=== PATIENT | male | born 1985 ===

== ENCOUNTER → 2019-10-08 | Outpatient (CLI) | payer OTHER ==
[~2019-10-08] MED LIST: CELE100C PO; CYCL5TAB PO; LAMO25TA5 PO; LURA20TA PO; SERT25TA PO
--- NOTE | 2019-10-08 09:43 | PAIN ---
DATE OF SERVICE: 10/08/2019 INITIAL CONSULTATION FOR PAIN CLINIC CHIEF COMPLAINT: Low back and right lower extremity pain. HISTORY OF PRESENT ILLNESS: This is a 34-year-old male who presents with history of pain in the low back for many years, worse over the past year or so, status post duty. No specific injury or action he is aware of, but had a lot of wear and tear on his back and a lot of manual labor involves not only with , but prior to that. The patient reports he has had physical therapy and also exercise that he is doing currently which helped in the past, and also some dry needling in 2014, which helped with the right leg pain; however, the pain is now across the low back equal right and left as well as pain radiating to the right posterior gluteus, lateral thigh, lateral anterior thigh, medial thigh, medial lower leg, and across the low back as well, but not into the left leg. The patient reports the pain in his right hand as well from previous fracture and 2 subsequent surgeries on the hand. The patient has been taking Celebrex. He is taking tramadol and Flexeril. The tramadol does help, but he has not had any since last summer. Celebrex was not helpful. Flexeril has not been helpful. He is also putting Voltaren gel on his hand, which is helpful for the hand. The patient reports the pain in his back and his right leg wake him up at night at least once a night, does not affect his bowel or bladder control, but does affect his ability to walk. He is not using any assistive devices, however, to ambulate. The patient describes the pain as sharp and changes during the day, worse with flexion and extension; rotation and motion is not terribly painful, but worse with standing, walking, changing positions; better with sitting or lying down, but again awaking him from sleep once a night. The patient reports that his disability rating from 0-10, 10 being at worst, is an 8 with recreation and social activity, 9 with self-care, and 7 with life support activities. The patient did have plain lumbar films, but does not have those with him today and have not available at time of this dictation for review. PAST MEDICAL HISTORY: Significant for hypertension, arthritis, and depression. PREVIOUS SURGERY: Include hand surgery x 2 and exploratory laparotomy at age 23. CURRENT MEDICATIONS: Include Zoloft, Latuda, Lamictal, Celebrex, Flexeril, albuterol inhaler, Flovent, Adalat, and hydrochlorothiazide. ALLERGIES: The patient has no known drug allergies. FAMILY HISTORY: Significant for no major medical problems or conditions that he is aware of. SOCIAL HISTORY: The patient does not drink alcohol, does not smoke. Denies any illegal, illicit or recreational drugs. He is single. He is currently active , but is in custody. REVIEW OF SYSTEMS: The patient's review of systems is positive for those items mentioned in history of present illness. All systems reviewed and otherwise negative. It is complete, full and well documented on the patient's chart. PHYSICAL EXAMINATION: VITAL SIGNS: The patient's blood pressure is 160/98, pulse 83, respirations 16, temperature 98.1 degrees Fahrenheit, height is 71 inches, and weight is 327 pounds. GENERAL: The patient is awake, alert, oriented, appropriate, very pleasant demeanor. The patient is accompanied by guards as the patient is in custody. HEENT: Shows normocephalic, atraumatic. Extraocular movements are intact and symmetrical. Oral cavity shows mucous membranes moist and pink. Dentition is intact. NECK: Shows anterior throat supple without palpable lymphadenopathy noted. Swallow reflex symmetrical. CHEST: Shows normal on inspection. Breath sounds are clear to auscultation bilaterally. HEART: Shows S1, S2 clear. No murmurs auscultated. ABDOMEN: Soft, nontender, and nondistended. No palpable organomegaly is noted. No rebound or guarding demonstrated. BACK: Shows spine grossly in the midline. Normal appearing thoracic kyphosis and lumbar lordotic curvatures. Lumbar paraspinous muscle shows symmetrical on inspection, on palpation shows some moderate tenderness diffusely bilaterally and diffusely without significant radiation. The patient has good rotational motion of lumbar spine with some minor tenderness with extension, but not with forward flexion, rearward extension very minimally painful. The patient's back shows no tenderness with palpation of spinous processes, sacrum or sacroiliac regions bilaterally. EXTREMITIES: The patient's lower extremities show deep tendon reflexes at 2+ in the patellar and tendo-calcaneus tendons are 1+. Motor exam is strong with dorsiflexion, extension, quadriceps, and hamstring flexion symmetrical. Peripheral pulses are 1+ in the posterior tibial and dorsalis pedis pulses. No peripheral edema is noted bilaterally. Lower extremities are warm and dry to touch, equal in color and appearance. The patient's skin shows warm and dry, good turgor. No edema. No sores, rashes or bruising throughout. The patient's upper extremities show deep tendon reflexes at 2+ in the biceps and triceps tendons. Motor exam is strong with pot pusher strength rated at 4/5 on the right and 5/5 on the left. The patient shows well-healed surgical scarring over the posterior aspect of the right hand and the first finger metacarpal region as well as the second metacarpal region with slightly decreased pot pusher strength on the right side compared to the left. IMPRESSION: 1. This is a 34-year-old male with [id number] of low back pain with some radicular pain in the right lower extremity with history of degenerative disk disease by the patient's report. 2. Plain films of lumbar spine pending at time of this dictation. 3. Hypertension. 4. Arthritis. 5. Previous hand surgery with hand pain on the right. PLAN: Options were discussed with the patient including conservative medical managements, continue physical therapy, and interventional technique and they would like to peruse interventional techniques. We discussed a lumbar epidural steroid injection using description as well as anatomical models to describe the procedure. The patient will wait for preauthorization with insurance provider. We will have the patient returned and plan on lumbar epidural steroid injection at that time. JODY MOLINA MD DR: MARA/magy JOB#: [id number] / [id number]
== END | disposition home or self-care (01) ==
LOC: PNCL 07:42 → EEVIPCON 08:00
PROVIDERS: ATTEND Anesthesiology
DX: M79.604 Pain in right leg (principal); I10 Essential (primary) hypertension; M19.90 Unspecified osteoarthritis, unspecified site; F32.9 Major depressive disorder, single episode, unspecified
CPT/HCPCS: G0463

== ENCOUNTER → 2020-03-19 | Outpatient (CLI) | payer OTHER ==
[~2020-03-19] MED LIST changes: +GABA600T PO; +IOHEXOL 180 MG/ML 10 ML VIAL. ONE; +methylPREDNISolone ACETATE 40 MG/ML VIAL. ONE; +methylPREDNISolone ACETATE 80 MG/ML VIAL. ONE
--- NOTE | 2020-03-19 08:52 | PAIN ---
DATE OF SERVICE: 03/19/2020 PROGRESS NOTE FOR PAIN CLINIC: DIAGNOSIS: Lumbar radiculopathy with lumbar degenerative disk disease. HISTORY OF PRESENT ILLNESS: The patient is a 34-year-old male, who returns for followup status post previous evaluation and preauthorization for lumbar epidural steroid injection. He has obtained that now and would like to proceed. Last seen on 10/08/2019. The patient is a prisoner and was not allowed to follow up until today. The patient reports still significant pain in the low back as it was previously. He reports he did have some dry needling, which helps somewhat with the sciatic pain that he was having, but still specific pain in the bilateral lower extremities, right greater than left. The patient reports some right knee pain as well. Reports the pain is in the low back, primarily into the right hip and lateral anterior thigh. The patient reports it is worse with walking, standing, especially climbing stairs, putting all his weight on his right leg and knee. Awakens him from sleep occasionally, but not every night; most nights, he sleeps fairly well. The patient reports no loss of motor function. The patient's pain is a 5 on a scale of 10 at its worst in the past week, 4 on an average, 3 at its least and is a 4 today. The patient reports it is stabbing and sharp in the back and the right leg as it was previously. The patient reports no new motor or sensory deficits, no new bowel or bladder incontinence or other complaints. PHYSICAL EXAMINATION: VITAL SIGNS: The patient's blood pressure is 149/104, pulse 99, respirations 18, temperature is 98.1 degrees Fahrenheit, height is 71 inches, weight is 290 pounds. GENERAL: The patient is awake, alert, oriented, appropriate, very pleasant demeanor. HEENT: Shows normocephalic, atraumatic. Extraocular movements are intact and symmetrical. Oral cavity: Mucous membranes moist and pink; dentition is intact. NECK: Shows anterior throat supple without palpable lymphadenopathy noted. Swallow reflex symmetrical. CHEST: Shows normal on inspection. Breath sounds are clear bilaterally. No rales, rhonchi or wheezes auscultated. HEART: Shows S1, S2 clear. No murmurs auscultated. ABDOMEN: Soft, nontender and nondistended. No palpable organomegaly is noted. No rebound or guarding demonstrated. BACK: Shows spine grossly in the midline. Normal-appearing thoracic kyphosis and minor flattening of the lumbar lordotic curvature. Lumbar paraspinous musculature shows symmetrical on inspection, on palpation shows some moderate tenderness diffusely bilaterally going diffusely without significant radiation. The patient has good rotational motion of lumbar spine, both laterally as well as extension and flexion without significant increase in pain. EXTREMITIES: Lower extremities show deep tendon reflexes 2+ in the patellar, 1+ tendo-calcaneus tendons. Motor exam is strong with 5/5 dorsiflexion, extension, quadriceps and hamstring flexion symmetrical. Peripheral pulses are 1+ posterior tibial. No peripheral edema is noted bilaterally. Options were discussed with the patient. The patient's old chart was reviewed as his current medication regimen updated. Current review of systems updated today as well and we will proceed with a lumbar epidural steroid injection today with fluoroscopic guidance. Risks were again discussed including, but not limited to bleeding, infection, possibility of epidural hematoma, subsequent neurological compromise, dural puncture, headaches, spinal cord and/or nerve damage, side effects of steroid medication and poor results regarding pain control. The patient understands and wished to proceed. The patient will return to the clinic in approximately 2 weeks for followup. He was counseled as to the return appointment, activity level and side effects to be aware of. DIAGNOSIS: Lumbar radiculopathy with lumbar degenerative disk disease. PROCEDURE: Lumbar epidural steroid injection, translaminar approach, at L4-L5 level using C-arm fluoroscopic guidance under sterile prep and drape using local anesthetic. MEDICATIONS INJECTED: A total of 120 mg of Depo-Medrol plus 10 mL of preservative-free normal saline and 2 mL of contrast. CONDITION AT DISCHARGE: Stable. The patient tolerated the procedure well, had no complications. JODY MOLINA MD DR: MARA/magy JOB#: [id number] / [id number]
== END ==
LOC: PNCL 07:24 → EEVIPCON 08:00
PROVIDERS: ATTEND Anesthesiology
DX: M51.16 Intervertebral disc disorders with radiculopathy, lumbar region (principal); M54.5 Low back pain; Z79.899 Other long term (current) drug therapy; Z98.890 Other specified postprocedural states
CPT/HCPCS: 62323; J1030; J1040; Q9965